=== PATIENT | female | born 1985 | race African-American/Black ===

== ENCOUNTER 2019-12-09 23:24 | Emergency (ER) | payer OTHER ==
[~2019-12-09] VITALS: Ht 162.6 cm; Wt 81.6 kg
[2019-12-09 23:46] VITALS: BP 122/43
--- NOTE | 2019-12-09 23:46 | NUR ---
ER Nurse Note: Pt brought in by ambulance c/o mid sternal chest pain for one year. Pt stated her chest pain is worse last week since the last year. Pt denies shortness of breath, n/v/d. Pt stated she is recovering from the flu and has been sneezing. All safety measures met, will continue to monitor.
--- NOTE | 2019-12-09 23:48 | Emergency Room Report ---
History of Present Illness General Chief Complaint: Chest Pain Source: Patient Present Illness HPI Disclaimer: Please note that this report is being documented using DRAGON technology. This can lead to erroneous entry secondary to incorrect interpretation by the dictating instrument. HPI: 34-year-old female presents for evaluation of chest pain. She describes a tenseness and sharp pain over the left upper chest and a pain in the left shoulder and going down the left arm for at least 1 week. Has been getting worse steadily. She has had this pain intermittently for approximately 1 year. She follows with a meter tester polyphase and is scheduled for a stress test next week. Denies shortness of breath, cough, fever, chills, pain rating to the back, diaphoresis, pain in the jaw, lightheadedness or syncope. No injury reported. She notes some pain in the left breast as well but has fibrocysts that are being followed up by her [employer] and has regular mammograms, l last one performed last year. Denies bleeding or discharge from the nipples. Patient also has a history of anxiety but states the symptoms are different. Has not taken any pain or anti-inflammatory medication prior to arrival. PMH: Obesity, prediabetes PSH: Reviewed Allergies: Denies Social Hx: Denies Allergies: Coded Allergies: No Known Allergies (Unverified , 12/09/19) Patient History Now: No - DEPOVERA Nursing Documentation-PM Past Medical History: No History, Except For Review of Systems All Other Systems: negative except mentioned in HPI Physical Exam Vital Signs Date Time Temp Pulse Resp B/P (MAP) Pulse Ox O2 Delivery O2 Flow Rate FiO2 12/09/19 23:26 97.9 68 16 122/43 (69) 100 Room Air General: Awake and alert, no acute distress HEENT: NC/AT. EOMI. Neck: Supple, trachea midline Chest Wall: Tenderness palpation of the sternum and on left upper chest wall. No deformity, no crepitus Cardiovascular: RRR. S1 and S2 normal. No murmur appreciated Resp: Normal work of breathing. No cough, wheezing or crackles appreciated Abdomen: Abdomen is soft, nondistended. Nontender Skin: Intact. No abrasions, laceration or rash over the exposed skin MSK: Normal tone and bulk. Moving all extremities. No obvious deformity. Tenderness palpation over the left shoulder and over the trapezius on the left side. No restriction to range of motion. There is a cystic structure in the left wrist on the dorsal aspect. Neuro: Awake and alert. Mentating appropriately. Medical Decision Making Diagnostic Impression: Primary Impression: Chest pain Additional Impression: Muscle spasm ER Course 34-year-old female presents for evaluation of chest pain this been going on intermittently for 1 year though getting worse over the past week. Differential includes but is not limited to musculoskeletal chest pain, muscle spasm, ACS, arrhythmia, bronchitis, pneumonia, CHF. Patient's physical exam and history are most consistent with a musculoskeletal cause of her chest pain and left shoulder pain. She has reproducible tenderness on both sides insistent with muscular spasm and muscular pain. She follows regularly with cardiology as scheduled for stress test next week. Will check EKG, labs and chest x-ray to rule out other causes however will treat with lidocaine patch, muscle relaxer and Toradol. Laboratory Tests Test 12/09/19 23:40 12/09/19 23:49 White Blood Count 7.1 K/UL (4.8-10.8) Red Blood Count 4.14 M/UL (4.20-5.40) L Hemoglobin 11.8 G/DL (12.0-16.0) L Hematocrit 35.6 % (37.0-47.0) L Mean Corpuscular Volume 86 FL (80-99) Mean Corpuscular Hemoglobin 28.4 PG (27.0-31.0) Mean Corpuscular Hemoglobin Concent 33.1 G/DL (32.0-36.0) Red Cell Distribution Width 12.6 % (11.6-14.8) Platelet Count 236 K/UL (150-450) Mean Platelet Volume 4.9 FL (6.5-10.1) L Neutrophils (%) (Auto) 59.8 % (45.0-75.0) Lymphocytes (%) (Auto) 32.2 % (20.0-45.0) Monocytes (%) (Auto) 5.6 % (1.0-10.0) Eosinophils (%) (Auto) 1.8 % (0.0-3.0) Basophils (%) (Auto) 0.6 % (0.0-2.0) Sodium Level 146 MMOL/L (136-145) H Potassium Level 3.9 MMOL/L (3.5-5.1) Chloride Level 111 MMOL/L (98-107) H Carbon Dioxide Level 25 MMOL/L (21-32) Anion Gap 10 mmol/L (5-15) Blood Urea Nitrogen 18 mg/dL (7-18) Creatinine 1.0 MG/DL (0.55-1.30) Estimate Glomerular Filtration Rate > 60 mL/min (>60) Glucose Level 87 MG/DL (74-106) Calcium Level 9.0 MG/DL (8.5-10.1) Total Bilirubin 0.2 MG/DL (0.2-1.0) Aspartate Amino Transferase (AST) 17 U/L (15-37) Alanine Aminotransferase (ALT) 26 U/L (12-78) Alkaline Phosphatase 53 U/L (46-116) Troponin I 0.010 ng/mL (0.000-0.056) Total Protein 8.0 G/DL (6.4-8.2) Albumin 3.9 G/DL (3.4-5.0) Globulin 4.1 g/dL Albumin/Globulin Ratio 1.0 (1.0-2.7) Urine Opiates Screen Negative (NEGATIVE) Urine Barbiturates Screen Negative (NEGATIVE) Phencyclidine (PCP) Screen Negative (NEGATIVE) Urine Amphetamines Screen Negative (NEGATIVE) Urine Benzodiazepines Screen Negative (NEGATIVE) Urine Cocaine Screen Negative (NEGATIVE) Urine Marijuana (THC) Screen Negative (NEGATIVE) EKG Diagnostic Results EKG Time: 23:29 Rate: normal Rhythm: NSR ST Segments: no acute changes Other Impression Sinus rhythm, normal axis, normal intervals, no ST segment changes. Q waves in V2. Rhythm Strip Diag. Results Rhythm Strip Time: 23:29 EP Interpretation: yes Rate: 70s Rhythm: NSR, no PVC's, no ectopy Chest X-Ray Diagnostic Results Chest X-Ray Diagnostic Results : Chest X-Ray Ordered: Yes # of Views/Limited/Complete: 1 View Indication: Chest Pain EP Interpretation: Yes Interpretation: no consolidation, no effusion, no pneumothorax, no acute cardiopulmonary disease Impression: No acute disease Electronically Signed by: Electronically signed by Dr. Ottoniel Krueger Last Vital Signs Date Time Temp Pulse Resp B/P (MAP) Pulse Ox O2 Delivery O2 Flow Rate FiO2 12/09/19 23:26 97.9 68 16 122/43 (69) 100 Room Air Reevaluation Impression EKG does not show signs of ischemia. Chest x-ray unremarkable. No evidence of pneumonia. Her history and physical exam are consistent with muscle spasms and chest wall pain from a musculoskeletal origin. Will start on Robaxin, NSAIDs and lidocaine patches. She is scheduled to follow-up with her meter tester polyphase for a stress test in the coming month. Encouraged her to keep those appointments and to follow-up with her PMD as well. Stable for outpatient follow-up. Discussed reasons to return to the emergency department. She understands and agrees with this treatment plan Disposition: HOME, SELF-CARE Condition: Stable Scripts Ibuprofen* (MOTRIN*) 600 Mg Tablet 600 MG ORAL Q8H PRN for For Pain, #30 TAB 0 Refills Prov: Ottoniel Krueger MD 12/10/19 Methocarbamol* (ROBAXIN-750*) 750 Mg Tablet 750 MG PO TID, #21 TAB 0 Refills Prov: Ottoniel Krueger MD 12/10/19 Lidocaine Patch* (Lidoderm Patch*) 1 Each Adh..patch 1 PATCH TOPIC DAILY, #7 PATCH 0 Refills Patch(es) may remain in place for up to 12 hours in any 24-hour period. Prov: Ottoniel Krueger MD 12/10/19 Ottoniel Krueger MD Dec 09, 2019 23:48
[2019-12-09 23:49] LABS: BASOPHILS % (AUTO) 0.6 % (0.0-2.0); EOSINOPHILS % (AUTO) 1.8 % (0.0-3.0); HEMATOCRIT 35.6 % (37.0-47.0); HEMOGLOBIN 11.8 G/DL (12.0-16.0); LYMPHOCYTES % (AUTO) 32.2 % (20.0-45.0); MEAN CORPUSCULAR VOLUME 86 FL (80-99); MONOCYTES % (AUTO) 5.6 % (1.0-10.0); NEUTROPHILS % (AUTO) 59.8 % (45.0-75.0); PLATELET COUNT 236 K/UL (150-450); RED BLOOD COUNT 4.14 M/UL (4.20-5.40); RED CELL DISTRIBUTION WIDTH 12.6 % (11.6-14.8); WHITE BLOOD COUNT 7.1 K/UL (4.8-10.8)
--- NOTE | 2019-12-09 23:58 | Diagnostic Imaging Report ---
EXAM: XR Cxr 1 CLINICAL HISTORY: CP TECHNIQUE: X-ray cxr 1. COMPARISON: No relevant prior studies available. FINDINGS: Single frontal view demonstrates a normal cardiomediastinal silhouette. The lungs are clear. No pleural effusions. The visualized osseous structures are within normal limits. IMPRESSION: No acute cardiopulmonary disease.
[2019-12-10] LABS: ANION GAP 10 mmol/L (5-15); BLOOD UREA NITROGEN 18 mg/dL (7-18); CARBON DIOXIDE 25 MMOL/L (21-32); CHLORIDE 111 MMOL/L (98-107); POTASSIUM 3.9 MMOL/L (3.5-5.1); SODIUM 146 MMOL/L (136-145)
[2019-12-10] MEDS ORDERED: Methocarbamol 750mg tab ORAL ONE
[2019-12-10] MEDS ORDERED: Ketorolac 30mg Inj IV ONE
[2019-12-10 00:05] LABS: ALANINE AMINOTRANSFERASE 26 U/L (12-78); ALBUMIN 3.9 G/DL (3.4-5.0); ALKALINE PHOSPHATASE 53 U/L (46-116); ASPARTATE AMINO TRANSFERASE 17 U/L (15-37); BILIRUBIN,TOTAL 0.2 MG/DL (0.2-1.0)
--- NOTE | 2019-12-10 00:28 | NUR ---
ER Nurse Note: All orders completed per ERMD orders. Pt VSS, RA, no signs of distress. All safety measures met; will continue to montior.
[2019-12-10] MEDS ORDERED: LIDODERM700 M1 TOPIC (00:34)
[2019-12-10] MEDS ORDERED: ROBAXIN-750750 MG PO (00:34)
[2019-12-10] MEDS ORDERED: IBUPROFEN600 MG ORAL (00:34)
[2019-12-10 00:50] VITALS: BP 128/54
--- NOTE | 2019-12-10 00:50 | NUR ---
ED Nurse Note: Pt cleared by health care Provider for discharge. Discharge instructions and prescription was given and explained to pt with repeat verbalization and understanding of teachings. Emphazed to follow up with primay care physcian within 2-3 days for further care. All medical deviecs such as ID band and IV removed; IV site clean and bandaged. Pt is AAO x4, RA, VSS, ambulatory and left with all personal belongings.
== END 2019-12-10 00:59 | disposition home or self-care (01) ==
LOC: EDBD 23:24 → EMR 12-10 00:57
DX: R07.9 Chest pain, unspecified (principal); M62.838 Other muscle spasm; M25.512 Pain in left shoulder; R73.03 Prediabetes
CPT/HCPCS: 36415; 71045; 80053; 80307; 84484; 85025; 93005; 96374; J1885; Z7502; 99284

== ENCOUNTER 2019-12-21 12:14 | Emergency (ER) | payer OTHER ==
[~2019-12-21] VITALS: Ht 162.6 cm; Wt 94.3 kg
[~2019-12-21 12:14] MED LIST: IBUPROFEN600 MG ORAL; LIDODERM700 M1 TOPIC; ROBAXIN-750750 MG PO
--- NOTE | 2019-12-21 12:25 | NUR ---
ED Nurse Note: Pt walked in from home c/o intermittent tingling in her feet and hands x 1/2 months. Respirations even and unlabored on room air. Vitals stable as documented.
[2019-12-21 12:27] VITALS: BP 111/77
--- NOTE | 2019-12-21 13:05 | NUR ---
ELOPEMENT: Pt eloped without being seen by ED PA. Pt did not let any staff know of her leaving.
--- NOTE | 2019-12-21 21:28 | Emergency Room Report ---
History of Present Illness General Chief Complaint: General Complaint Source: Patient Present Illness HPI This patient left prior to evaluation by medical provider. Allergies: Coded Allergies: No Known Allergies (Unverified , 12/09/19) Patient History Now: No Nursing Documentation-[facility] Past Medical History: No Stated History Physical Exam Vital Signs Date Time Temp Pulse Resp B/P (MAP) Pulse Ox O2 Delivery O2 Flow Rate FiO2 12/21/19 12:18 99.1 78 18 111/77 (88) 99 Room Air Medical Decision Making PA Attestation Dr. June Is my supervising Physician whom patient management has been discussed with. Diagnostic Impression: Primary Impression: unk ER Course This patient left prior to evaluation by medical provider. Last Vital Signs Date Time Temp Pulse Resp B/P (MAP) Pulse Ox O2 Delivery O2 Flow Rate FiO2 12/21/19 12:27 99.1 78 18 111/77 99 Room Air Disposition: LEFT W/OUT BEING SEEN Condition: Unknown Referrals: NON PHYSICIAN (PCP) Davina Berman Dec 21, 2019 21:28
== END 2019-12-21 13:40 | disposition left against medical advice (07) ==
LOC: EMR 13:00
DX: R20.0 Anesthesia of skin (principal); Z53.21 Procedure and treatment not carried out due to patient leaving prior to being seen by health care provider

== ENCOUNTER 2020-01-18 15:49 | Emergency (ER) | payer OTHER ==
[~2020-01-18] VITALS: Ht 162.6 cm; Wt 90.7 kg
[2020-01-18 15:54] VITALS: BP 123/81
--- NOTE | 2020-01-18 15:54 | NUR ---
ED Nurse Note: patient walked into ED from home c/o pressure like feeing in her head for more than 1 year. patient reports she will follow up with ENT on thursday. patient is alert awake x4 ambulatory, breathing unlabored and even, speaking in full sentences.
--- NOTE | 2020-01-18 16:18 | Emergency Room Report ---
History of Present Illness General Chief Complaint: General Complaint Source: Patient Present Illness HPI 34-year-old female with chronic sinus pressure and headache x1 year here requesting MRI. Patient reports that she is Gavino been seen by primary doctor as well as neurologist and has had a CT scan done. Patient was a more detailed study. Patient has an appointment coming up with ENT this coming Thursday. Denies any recent fall or injury. Denies any URI symptoms, fever, recent travel. Has not taken any allergy medication or decongestants in the past. Allergies: Coded Allergies: No Known Allergies (Unverified , 12/09/19) Patient History Past Medical History: see triage record Past Surgical History: none Pertinent Family History: none Last Menstrual Period: depo Now: No Immunizations: UTD Reviewed Nursing Documentation: PMH: Agreed; PSxH: Agreed Nursing Documentation-PMH Past Medical History: No History, Except For Hx Diabetes: Yes - pre History Of Psychiatric Problem: Yes - anxiety Review of Systems All Other Systems: negative except mentioned in HPI Physical Exam Vital Signs Date Time Temp Pulse Resp B/P (MAP) Pulse Ox O2 Delivery O2 Flow Rate FiO2 01/18/20 15:54 98.2 84 20 123/81 (95) 99 Room Air Sp02 EP Interpretation: reviewed, normal General Appearance: no apparent distress, alert, GCS 15, non-toxic Head: normocephalic, atraumatic Eyes: bilateral eye normal inspection, bilateral eye PERRL ENT: hearing grossly normal, normal pharynx, no angioedema, normal voice Neck: full range of motion, supple/symm/no masses Respiratory: chest non-tender, lungs clear, normal breath sounds, no rhonchi, no wheezing, speaking full sentences Cardiovascular #1: regular rate, rhythm, no edema, no murmur Gastrointestinal: normal bowel sounds, non tender, soft, non-distended, no guarding, no rebound Genitourinary: no CVA tenderness Musculoskeletal: back normal Neurologic: alert, motor strength/tone normal, oriented x3, sensory intact, responsive, speech normal Psychiatric: judgement/insight normal, memory normal, mood/affect normal, no suicidal/homicidal ideation Skin: no rash Lymphatic: no adenopathy Medical Decision Making PA Attestation All my diagnosis and treatment plans were reviewed ad discussed with my supervising physician Dr. Yomtoubian Diagnostic Impression: Primary Impression: Sinus pressure Additional Impression: Eustachian tube disorder ER Course 34-year-old female with chronic sinus pressure and headache x1 year here requesting MRI. Patient reports that she is Gavino been seen by primary doctor as well as neurologist and has had a CT scan done. Patient was a more detailed study. Patient has an appointment coming up with ENT this coming Thursday. Denies any recent fall or injury. Denies any URI symptoms, fever, recent travel. Has not taken any allergy medication or decongestants in the past. Ddx considered but are not limited to: Sinusitis, tension headache, migraine, sinus pressure Vital signs: are WNL, pt. is afebrile H&PE are most consistent with: Sinus pressure, eustachian tube disorder ORDERS: Claritin-D ED INTERVENTIONS: None required at this time. DISCHARGE: At this time pt. is stable for d/c to home. Will provide printed patient care instructions, and any necessary prescriptions. Care plan and follow up instructions have been discussed with the patient prior to discharge. Patient to follow-up primary doctor for MRI as well as ENT. If worsening symptoms return to emergency room this is chronic issue. Last Vital Signs Date Time Temp Pulse Resp B/P (MAP) Pulse Ox O2 Delivery O2 Flow Rate FiO2 01/18/20 15:54 98.2 84 20 123/81 (95) 99 Room Air Disposition: HOME, SELF-CARE Condition: Stable Scripts Loratadine/Pseudoephedrine (CLARITIN-D 12 HOUR TABLET) 1 Each Tab.er.12h 1 TAB ORAL EVERY 12 HOURS, #20 TAB Prov: Charbel Beltre 01/18/20 Patient Instructions: Sinus Headache, [id number] Additional Instructions: Follow-up with your ENT for further evaluation at this time your pain is chronic further imaging such as MRI to be requested by ENT or neurologist or your primary doctor if worsening symptoms return to the emergency room Charbel Beltre Jan 18, 2020 16:17
[2020-01-18] MEDS ORDERED: CLARITIN-D 121 EAC1 ORAL (16:19)
[2020-01-18 16:28] VITALS: BP 123/81
--- NOTE | 2020-01-18 16:29 | NUR ---
ER DISCHARGE NOTE: Patient is cleared to be discharged per CHIDI PETERS, pt is aox4, on room air, with stable vital signs. pt was given dc and prescription instructions, pt was able to verbalize understanding, pt id band removed without complications. pt is able to ambulate with steady gait. pt took all belongings.
== END 2020-01-18 16:28 | disposition home or self-care (01) ==
LOC: EMR 16:15
DX: R51 Headache (principal); H69.90 Unspecified Eustachian tube disorder, unspecified ear; F41.9 Anxiety disorder, unspecified; R73.03 Prediabetes
CPT/HCPCS: 99281